=== PATIENT | female | born 1965 | race Two or more races ===

== ENCOUNTER 2019-06-15 19:33 | Inpatient (IN) | payer MEDICAID ==
[~2019-06-15] VITALS: Ht 170.2 cm; Wt 75.5 kg
[2019-06-15] MEDS ORDERED: ONDANSETRON HCL/PF 4 MG/2 ML VIAL IVP ONE (20:00)
[2019-06-15] MEDS ORDERED: IV NS 0.9% 1,000 ML BAG IV ONE (20:00)
--- NOTE | 2019-06-15 20:05 | NUR ---
Pt TORRIE FROM A PENITENTIARY HOUSE FOR POSSIBLE DRUG OVERDOSE ON ANTIDEPRESSANTS PER EMS REPORT. Pt IS AMS. ONLY RESPONSIVE TO STERNAL RUB WITH GARBLED-SLURRED SPEECH, ABLE TO MOVE UPPER EXTREMITIES. IV ACCESS MANAGER NON PROFIT ON RAC #18G. PATENT AND INTACT, FLUSHING WELL. Pt PLACED ON MONITOR. Pt ALREADY SEEN BY . Pt PLACED ON O2 3L VIA NC. VS STABLE. WILL CONTINUE TO MONITOR Pt.
[2019-06-15] MEDS ORDERED: ONDANSETRON HCL/PF 4 MG/2 ML VIAL ONE (20:15)
[2019-06-15 20:20] LABS: ABG BASE EXCESS -2.7 mmol/L; ABG OXYGEN SATURATION 92.3 % (92.0-98.5); ABG PH 7.386 (7.350-7.450); ABG PO2 68.1 mmHg (75.0-100.0); AaDO2 116.8 mmHg; COHb 1.7 % (0.5-1.5); MetHb 0.5 % (0.0-1.5); O2Hb 90.3 % (94.0-97.0)
--- NOTE | 2019-06-15 20:26 | NUR ---
Pt BEING TAKEN FOR HEAD CT
[2019-06-15 20:32] LABS: HEMATOCRIT 47 % (33-45); HEMOGLOBIN 15.9 g/dL (11.5-14.8); MEAN CORPUSCULAR HGB CONC 34 g/dl (31.0-36.0); MEAN CORPUSCULAR VOLUME 95 fL (82-100); PLATELET COUNT (AUTO) 229 /CMM (150-450); RED BLOOD CELL COUNT(AUTO) 4.98 MIL/uL (4.0-5.2)
[2019-06-15 20:44] LABS: CALCIUM, SERUM 9.6 mg/dL (8.5-10.1); CARBON DIOXIDE 25 mmol/L (21-32); CHLORIDE 103 mmol/L (98-107); CREATININE 1.1 mg/dL (0.6-1.3); GLUCOSE 143 mg/dL (74-106); POTASSIUM 3.9 mmol/L (3.5-5.1); SODIUM SERUM 141 mmol/L (136-145); UREA NITROGEN, BLOOD 13 mg/dL (7-18)
[2019-06-15 20:50] LABS: ALANINE AMINOTRANSFERASE 19 U/L (12-78); ALBUMIN 3.7 g/dL (3.4-5.0); ALKALINE PHOSPHATASE 87 U/L (46-116); ASPARTATE AMINOTRANSFERASE 17 U/L (15-37); BILIRUBIN,DIRECT 0.1 mg/dL (0.0-0.2); BILIRUBIN,TOTAL 0.5 mg/dL (0.2-1.0); SALICYLATE 4.4 mg/dL (2.8-20.0); TOTAL PROTEIN, SERUM 7.5 g/dL (6.4-8.2)
[2019-06-15 20:59] LABS: ACETAMINOPHEN < 2 ug/ml (10-30)
[2019-06-15 21:07] LABS: BAND % (MANUAL) 2 % (0.0-5.0); LYMPHOCYTES % (MANUAL) 8 % (16-48); MONOCYTES % (MANUAL) 4 % (0-11.0); NEUTROPHILS % (MANUAL) 86 (42-76)
[2019-06-15] MEDS ORDERED: IV NS 0.9% 1,000 ML IV PRN (21:14)
[2019-06-15] MEDS ORDERED: MORPHINE SULFATE INJ 2 MG/ML DISP.SYRIN IV PRN (21:30)
[2019-06-15] MEDS ORDERED: ACETAMINOPHEN 650 MG/SUPP.RECT RC PRN (21:30)
[2019-06-15] MEDS ORDERED: ONDANSETRON HCL/PF 4 MG/2 ML VIAL IVP PRN (21:30)
[2019-06-15] MEDS ORDERED: LORAZEPAM INJ 2 MG/ML VIAL IV PRN (21:30)
--- NOTE | 2019-06-15 21:46 | NUR ---
CALLED HOUSE SUP FOR ICU BED
--- NOTE | 2019-06-15 21:55 | NUR ---
ICU BED 262 GIVEN
[2019-06-15] MEDS ORDERED: FAMOTIDINE/PF INJ 20 MG/2 ML VIAL IV ONE ×2 (22:00→23:00)
--- NOTE | 2019-06-15 22:43 | NUR ---
RN REQUESTING PT BE SENT UPSTAIRS IN 10 MINS.
--- NOTE | 2019-06-15 22:43 | NUR ---
REPORT GIVEN TO MOBILE PET GROOMERCARRIE GEORGE.
--- NOTE | 2019-06-15 23:30 | NUR ---
ARCHITECTURAL INTERNFORESTRY INSTRUCTOR NOTES RECEIVED PATIENT FROM ER VIA [facility]. DIAGNOSIS: "OVERDOSE, POISONING BY UNSPECIFIED DRUGS, ACUTE ENCEPHALOPATHY: TOXIC." WHILE TRANSFERRING PATIENT FROM [facility] TO BED, PATIENT WOKE UP, AGITATED, SWINGING ARMS, MUMBLING. VERBAL REORIENTATION EFFORTS INEFFECTIVE. TERESA ZENG MADE AWARE, WITH ORDER FOR 1:1 SITTER. JINGLE WRITER ROBERTO MADE AWARE. NO SITTER AVAILABLE AT THIS TIME. SINCE NO SITTER AVAILABLE, TERESA WITH ORDER FOR BILATERAL SOFT WRIST RESTRAINTS TO MAINTAIN PATIENT SAFETY. PLACED ON BEDSIDE TELE MONITOR, V PACING, HR 88 BPM AT THIS TIME. RIGHT AC IV PATENT AND INTACT, WILL OBTAIN ADDITIONAL IV ACCESS PER ICU PROTOCOL. BASSETT CATHETER DRAINING YELLOW URINE WITH SEDIMENTS VIA GRAVITY. CALL LIGHT WITHIN EASY REACH, BILATERAL SOFT WRIST RESTRAINTS IN PLACE. WILL MONITOR THE PATIENT CLOSELY
--- NOTE | 2019-06-15 23:32 | NUR ---
Pt TRANSFERRED PER ACLS PROTOCOL.
[2019-06-15 23:34] LABS: APPEARANCE,URINE CLEAR (CLEAR); BILIRUBIN,URINE NEGATIVE (NEGATIVE); COLOR,URINE YELLOW (YELLOW); KETONES,URINE NEGATIVE (NEGATIVE); LEUKOCYTE ESTERASE ,URINE NEGATIVE (NEGATIVE); NITRITE, URINE NEGATIVE (NEGATIVE); PH,URINE 5.5 (5.0-8.0); PROTEIN,URINE TRACE mg/dl (NEGATIVE); UGLUCOSE NEGATIVE (NEGATIVE); UROBILINOGEN,URINE 0.2 EU/dL (0.2)
[2019-06-15 23:41] VITALS: BP 159/95
[2019-06-15 23:42] LABS: BLOOD, URINE TRACE Ery/uL (NEGATIVE)
[2019-06-15 23:43] LABS: BACTERIA,URINE None seen /HPF (None Seen); RBC,URINE 0-2 /HPF (0-2); SQUAMOUS EPITHELIAL CELL,UR Few /HPF (None Seen); WBC,URINE 0-2 /HPF (0-3)
[2019-06-15 23:48] VITALS: BP 159/95
[2019-06-16] VITALS (25 sets, daily range): BP systolic 101–133; BP diastolic 58–85
--- NOTE | 2019-06-16 | NUR ---
CRIMINAL LEGAL ASSISTANT NOTES SPOKE TO TERESA ZENG NP TO CLARIFY MED ORDERS. PEPCID 20MG IV DAILY, LOVENOX 40MG DAILY. TERESA ALSO WITH ORDER FOR CONTINUOS IV FLUIDS OF NS @ 75 ML/HR. ALL ORDERS READ BACK FOR CLARIFICATION. WILL MONITOR CLOSELY
[2019-06-16] MEDS ORDERED: IV NS 0.9% 1,000 ML IV PRN (00:30)
--- NOTE | 2019-06-16 01:50 | NUR ---
STERILIZATION TECHNICIAN NOTES TERESA ZENG MENTAL HEALTH CASE MANAGER MADE AWARE THAT PATIENT IS STARTING TO HAVE PERIODS OF INCREASING AGITATION, DESPITE THE ADMINISTRATION OF ATIVAN @ 2354. TERESA WITH NEW ORDER FOR ZYPREXA 5MG IM X1 FOR SEVERE AGITATION.
[2019-06-16] MEDS ORDERED: CLON1TAB PO (01:53)
[2019-06-16] MEDS ORDERED: QUET25TA PO (01:53)
[2019-06-16] MEDS ORDERED: CITA40TA22 PO (01:53)
[2019-06-16] MEDS ORDERED: OLANZAPINE 10 MG VIAL IM ONE (02:00)
--- NOTE | 2019-06-16 02:00 | NUR ---
ENTERPRISE RESOURCE PLANNER NOTES CALLED PHARMACY TO VERIFY ZYPREXA ORDER.
--- NOTE | 2019-06-16 02:30 | NUR ---
STRAP BUCKLER MACHINE NOTES PHARMACY CALLED AGAIN BY CHARGE NURSE CLAUDIA TO VERIFY ZYPREXA. PATIENT QUIET AT THIS TIME, WILL MONITOR CLOSELY.
--- NOTE | 2019-06-16 02:53 | NUR ---
PATIENT'S : RBOB Ballesteros LIAM [phone]
[2019-06-16 04:55] LABS: BASOPHILS % (AUTO) 0.4 % (0.0-2.0); HEMATOCRIT 40 % (33-45); HEMOGLOBIN 13.7 g/dL (11.5-14.8); LYMPHOCYTES # (AUTO) 1.3 /CMM (0.8-4.8); LYMPHOCYTES % (AUTO) 11.2 % (20.0-44.0); MEAN CORPUSCULAR HGB CONC 34 g/dl (31.0-36.0); MEAN CORPUSCULAR VOLUME 95 fL (82-100); MONOCYTES # (AUTO) 0.7 /CMM (0.1-1.30); MONOCYTES % (AUTO) 6.1 % (2.0-12.0); NEUTROPHILS # (AUTO) 9.9 /CMM (1.8-8.9); NEUTROPHILS % (AUTO) 82.3 % (43.0-81.0); PLATELET COUNT (AUTO) 190 /CMM (150-450); RED BLOOD CELL COUNT(AUTO) 4.23 MIL/uL (4.0-5.2)
[2019-06-16 05:03] LABS: CALCIUM, SERUM 8.8 mg/dL (8.5-10.1); CREATININE 1.1 mg/dL (0.6-1.3); MAGNESIUM 1.7 mg/dL (1.8-2.4); PHOSPHORUS 4.4 mg/dL (2.5-4.9)
[2019-06-16 05:19] LABS: THYROID STIMULATING HORMONE 0.728 uIU/mL (0.358-3.74)
--- NOTE | 2019-06-16 06:40 | NUR ---
WELCOME CENTER ATTENDANT NOTES PATIENT RESTING IN BED, APPEARS COMFORTABLE. ZYPREXA IM ON STANDBY, NOT NEEDED PATIENT IS NOW CALM. PATIENT REMAINS LETHARGIC/ALTERED, BUT IS NO LONGER COMBATIVE AND RESTLESS AT THIS TIME. PATIENT'S ESCORTED TO TO WAITING ROOM. PATIENT'S ROBB HAS THE PATIENT'S PHONE. WILL ENDORSE THE PATIENT TO THE AM SHIFT NURSE FOR CONTINUITY OF CARE
[2019-06-16] MEDS ORDERED: FUROSEMIDE 40 MG/4 ML VIAL IV SCH (07:30)
--- NOTE | 2019-06-16 07:30 | NUR ---
IRONWORKER APPRENTICE SHOP INITIAL NOTE RECEIVED PATIENT AWAKE, DROWSY, RESTLESS, MAKING INCOMPREHENSIBLE SOUNDS. VPAING ON MONITOR. F/C PATENT INTACT, DRAINING BY GRAVITY. HOB ELEVATED. REORIENTED, NON-COMPLIANT. NO S/S OF PAIN OR DISCOMFORT. SKIN WARM AND DRY TO TOUCH. BILATERAL SOFT RESTRAINTS IN PLACE. CIRCULATION CHECKED. MONITORED CLOSELY. SIDE RAILS UP AND LOCKED. BED ALARM ON. BED AT LOWEST POSITION. WILL CONTINUE TO MONITOR.
[2019-06-16 07:58] LABS: THYROID STIMULATING HORMONE 0.691 uIU/mL (0.358-3.74)
[2019-06-16] MEDS: FAMOTIDINE/PF INJ 20 MG/2 ML VIAL IV SCH (08:24)
[2019-06-16] MEDS: ENOXAPARIN SODIUM 40 MG/0.4 ML DISP.SYRIN SQ SCH (08:27)
[2019-06-16] MEDS ORDERED: ENOXAPARIN SODIUM 40 MG/0.4 ML DISP.SYRIN SQ ONE (09:00)
[2019-06-16] MEDS: Magnesium 1GM/D5W 100ML PREMIX 100 ML IV SCH ×2 (11:01→12:51)
--- NOTE | 2019-06-16 11:22 | NUR ---
GOLF COURSE STARTER NOTE SEEN AND EXAMINED DR. ROCA, PATIENT BECAME AGITATED AND STARTED YELLING, BUT CALMED DOWN AND ANSWERED QUESTIONS. OK TO TRANSFER TO TELE WITH SITTER. CHARGE NURSE AWARE. WILL INFORM GANG PLANK WORKMAN.
--- NOTE | 2019-06-16 11:35 | NUR ---
LEATHER CRAFTSMAN NOTE PATIENT MORE AWAKE AND ALERT, FOLLOWS SIMPLE COMMANDS. SPEECH THERAPIST AT BEDSIDE, SWALLOW EVAL. WILL CONTINUE TO MONITOR.
--- NOTE | 2019-06-16 11:48 | NUR ---
ROLL SCALE MAN NOTE SEEN BY SPEECH THERAPIST, PER THERAPIST, PATIENT ABLE TO SWALLOW FINE, BUT FEELS MORE SAFE TO PLACE HER ON SOFT DIET, AND RECOMMENDS ORE CHARGER TO SPEAK WITH PATIENT. ORE CHARGER INFORMED.
--- NOTE | 2019-06-16 12:00 | NUR ---
STAFF RADIOGRAPHER NOTE PATIENT PULLING OFF RESTRAINTS, NOTED WITH BILATERAL WRIST BRUISES. PICTURE TAKEN AND PLACE IN CHART. RESTRAINTS RELEASED AT THIS TIME AND CLOSELY MONITORED PATIENT.
--- NOTE | 2019-06-16 13:55 | NUR ---
JAMAL received a call from Pt's counter caser Nelson Contreras from [facility] informing SW that due to pt. intentionally overdosing they will not be able to accommodate pt. back and is requesting assistance with placement. Pt. is in the [facility] program and has been there for the past two years. Pt. is also receiving [facility] services through [facility]. Pt's therapist at [place] is Suma Levine . JAMAL informed Nelson that pt. will be evaluated by psychiatrist. SW to follow up with Nelson after pt. has been evaluated by psychiatrist.
--- NOTE | 2019-06-16 14:00 | NUR ---
SENIOR INTEGRATION DEVELOPER NOTE PATIENT REQUIRING FREQUENT CHECKS, REMINDERS, REORIENTATION. NON-COMPLIANT WITH CARE DESPITE REMINDERS AND REORIENTATION. AT BEDSIDE, PATIENT ALSO DOES NOT LISTEN TO . WILL CONTINUE TO CLOSELY MONITOR.
--- NOTE | 2019-06-16 14:40 | NUR ---
ORAL AND MAXILLOFACIAL SURGEON NOTE SEEN BY WELDER PLASMA ARC, PLACED PATIENT ON 2GM SODIUM SOFT DIET
--- NOTE | 2019-06-16 17:00 | NUR ---
OWNER/OPERATOR NOTE PATIENT ATTEMPTED TO EAT DINNER, BUT ONLY AT 25% OF IT. STILL WITH ATTEMPTS TO GET OUT OF BED, REMOVING LINES. WILL CONTINUE TO MONITOR.
--- NOTE | 2019-06-16 17:38 | NUR ---
SUPERVISOR REFRACTORY PRODUCTS NOTE REPORT GIVEN TO NICHELLE NURSE
--- NOTE | 2019-06-16 18:15 | NUR ---
BILLING COLLECTIONS SPECIALIST NOTE PATIENT TRANSFERRED VIA WHEELCHAIR TO NICHELLE ROOM 119-2 WITH ROBB AT BEDSIDE, ALL BELONGINGS WITH PATIENT. STABLE CONDITION.
--- NOTE | 2019-06-16 18:15 | NUR ---
RESERVE OFFICERMID LEVEL BUSINESS ANALYST NOTE RECEIVED PATIENT FROM ICU. REPORT FROM DELFINO RN. PATIENT IN NO ACUTE DISTRESS. NO SOB NOTED. ON REPORT DELFINO STATED PATIENT ON RESTRAINTS AND RESTRAINTS REMOVED DUE TO BRUISING ON BILATERAL WRISTS IN ICU. DELFINO RN TOOK PICS AND IN CHART. I RECEIVED PATIENT WITHOUT RESTRAINTS AND MAINTAINED ON A 1:1 SITTER. PATIENT HAS NO SLURRED SPEECH BUT ALERT AND ORIENTED X2. PATIENT AT THE BEDSIDE. PATIENT ON CARDIAC MONITORING V PACING HR 89. IV INTACT. SAFETY PRECAUTIONS IN PLACE. WILL CONTINUE TO MONITOR. BASSETT CATHETER HANGING TO GRAVITY. PATIENT BED IS LOCKED AND IN LOWEST POSITION. CALL LIGHT WITHIN REACH. WILL CONTINUE TO MONITOR.
--- NOTE | 2019-06-16 19:24 | NUR ---
POLY OPERATOR CLOSING NOTE PATIENT RESTING IN BED COMFORTABLY, WITH AT THE BEDSIDE. PATIENT BREATHING ON NC 3L SATURATING >95% SPO2. PATIENT BREATHING IS EVEN AND UNLABORED. PATIENT IN NO ACUTE DISTRESS. NO SOB NOTED. PATIENT VITAL SIGNS WNL. PATIENT BASSETT CATHETER HANGING TO GRAVITY. PATIENT MAINTAINED ON A 1:1 SITTER. PATIENT MAINTAINED ON CARDIAC MONITORING, V PACING 87. SAFETY PRECAUTIONS IN PLACE. PATIENT BED IS LOCKED AND IN LOWEST POSITION. CALL LIGHT WITHIN REACH. NURSING NEEDS MET. PATIENT KEPT CLEAN AND DRY. ENDORSED CARE TO PM SHIFT FOR CARMINE.
--- NOTE | 2019-06-16 20:00 | NUR ---
NICHELLE RN NOTE PATIENT RESTING IN BED COMFORTABLY, WITH AT THE BEDSIDE , A/A/OX2. PATIENT BREATHING ON NC 3L SATURATING >95% SPO2. PATIENT BREATHING IS EVEN AND UNLABORED. PATIENT IN NO ACUTE DISTRESS. NO SOB NOTED. PATIENT VITAL SIGNS WNL. PATIENT BASSETT CATHETER DRAINING TO GRAVITY. PATIENT MAINTAINED ON A 1:1 SITTER. PATIENT MAINTAINED ON CARDIAC MONITORING, V PACING 88. SAFETY PRECAUTIONS IN PLACE. PATIENT BED IS LOCKED AND IN LOWEST POSITION. CALL LIGHT WITHIN REACH. PATIENT'S NEEDS MET AT THIS TIME . WILL CONTINUE TO MONITOR.
[2019-06-17] VITALS: BP 112/70
--- NOTE | 2019-06-17 02:00 | NUR ---
RN NOTES PATIENT WAS OFFERED TO BE GIVEN BED BATH IN THE PRESENCE OH HER GIRLFRIEND AND GENARO Hickey. PATIENT IS REFUSING TO BE CLEANED AND TOUCHED. ALL RISKS AND BENEFITS HAS BEEN EXPLAINED TO THE PATIENT. WILL CONTINUE TO MONITOR PATIENT CLOSELY.
[2019-06-17 04:00] VITALS: BP 110/66
[2019-06-17 06:24] LABS: ALANINE AMINOTRANSFERASE 18 U/L (12-78); ALKALINE PHOSPHATASE 85 U/L (46-116); ASPARTATE AMINOTRANSFERASE 14 U/L (15-37); BILIRUBIN,TOTAL 0.7 mg/dL (0.2-1.0); CALCIUM, SERUM 8.8 mg/dL (8.5-10.1); CARBON DIOXIDE 30 mmol/L (21-32); CHLORIDE 101 mmol/L (98-107); CREATININE 0.9 mg/dL (0.6-1.3); GLUCOSE 99 mg/dL (74-106); MAGNESIUM 1.9 mg/dL (1.8-2.4); PHOSPHORUS 3.2 mg/dL (2.5-4.9); POTASSIUM 3.3 mmol/L (3.5-5.1); SODIUM SERUM 137 mmol/L (136-145); TOTAL PROTEIN, SERUM 6.3 g/dL (6.4-8.2); UREA NITROGEN, BLOOD 14 mg/dL (7-18)
[2019-06-17 06:38] LABS: BASOPHILS % (AUTO) 0.4 % (0.0-2.0); EOSINOPHILS % (AUTO) 0.6 % (0.0-6.0); HEMATOCRIT 41 % (33-45); LYMPHOCYTES # (AUTO) 1.7 /CMM (0.8-4.8); LYMPHOCYTES % (AUTO) 20.6 % (20.0-44.0); MEAN CORPUSCULAR HGB CONC 34 g/dl (31.0-36.0); MEAN CORPUSCULAR VOLUME 94 fL (82-100); MONOCYTES # (AUTO) 0.5 /CMM (0.1-1.30); MONOCYTES % (AUTO) 6.5 % (2.0-12.0); NEUTROPHILS # (AUTO) 5.8 /CMM (1.8-8.9); NEUTROPHILS % (AUTO) 71.9 % (43.0-81.0); PLATELET COUNT (AUTO) 171 /CMM (150-450); RED BLOOD CELL COUNT(AUTO) 4.34 MIL/uL (4.0-5.2); WHITE BLOOD COUNT (AUTO) 8.1 K/uL (4.3-11.0)
--- NOTE | 2019-06-17 07:30 | NUR ---
RN AM NOTE PATIENT IN BED, CONFUSED AND YELING TO NURSE AND INTELLIGENCE INTERN ABOUT MAKING PHONE CALLS. STATES SHE SHOULDNT BE IN THE HOSPITAL AND THAT HER IS HERE AND NOT HERE. RN ATTMEPT TO CALL NUMBER VERBALIZED BY JOVI AND IT IS DISCONECTED. PATIENT DOENST UNDERSTAND WHY SHE IS HERE, ANGRY AND DEMANDING. IV PATENT AND INTACT, VITALS WNL. BED LOW TO FLOOR SITTER AT BEDSIDE, CALL LIGHT WITHIN REACH. SAFETY MEASURES IN PLACE.
[2019-06-17 08:00] VITALS: BP 104/56
[2019-06-17] MEDS: FAMOTIDINE/PF INJ 20 MG/2 ML VIAL IV SCH (08:37)
--- NOTE | 2019-06-17 09:00 | NUR ---
RN NOTE PATIENT CONFUSED, ANGRY AND DEMANDING. NO NUMBER IN CHART FOR RN TO CONTACT . SAFETY MEASURES IN PLACE. CONTINUE TO MONTIOR.
[2019-06-17] MEDS: ENOXAPARIN SODIUM 40 MG/0.4 ML DISP.SYRIN SQ SCH (09:19)
--- NOTE | 2019-06-17 09:50 | NUR ---
JAMAL spoke with pt's CARRIE May regarding pt. needing a psych. consult. CARRIE May informed SW she is sending an psych. consult order for the pt. CARRIE May also informed JAMAL that pt. is very confused. Pt. is pulling out her Yousif and is aggressive at times.
--- NOTE | 2019-06-17 09:59 | NUR ---
RN NOTE RN SPOKE WITH MD NO NEED TO CALL POISON CONTROL AT THIS TIME. PSYCH CONSULT PUT IN FOR PATIENT.
[2019-06-17] MEDS ORDERED: POTASSIUM CHLORIDE 20 MEQ TAB.PRT.SR PO SCH (11:00)
--- NOTE | 2019-06-17 11:53 | NUR ---
RN NOTE PT EVALUATED PATIENT AT BEDSIDE. STANDBY ASSIST AND AMBULATE WITH WALKER. D/C BASSETT CONTINUE STRICT INTAKE AND OUTPUT USE OF HAT INSIDE TOILET. SITTER AT BEDSIDE, PATIENT STILL CONFUSED.
[2019-06-17 12:00] VITALS: BP 108/60
[2019-06-17] MEDS ORDERED: POTASSIUM CHLORIDE 20 MEQ TAB.PRT.SR PO ONE (13:00)
--- NOTE | 2019-06-17 15:15 | NUR ---
RN NOTE TRANSFTER REQUEST FROM FAMILY PATIENT AT BEDSIDE. PATIENT AND REQUEST SHE MAY BE TRANSFERED TO [facility] PHONE # [phone]. RN CONTACTED CASE MANAGMENT TO INFORM OF REQUEST, NO ANSWER MESSAGE WAS LEFT ON VOICEMAIL. RN WILL ENDORSE TO COMPLEX CASE MANAGER. WIFES NUMBER BRANDY WHEELER [phone]
[2019-06-17] MEDS: ALBUTEROL HALF STRENGTH 1.25 MG/3 ML VIAL.NEB NEB SCH ×2 (15:30→19:52)
[2019-06-17] MEDS: IPRATROPIUM NEB FS 0.5 MG/2.5 ML AMPUL.NEB NEB SCH ×2 (15:30→19:52)
[2019-06-17 16:00] VITALS: BP 103/59
--- NOTE | 2019-06-17 17:53 | NUR ---
RN NOTE SAFETY PATIENT AT BEDSIDE. BROUGHT PATIENTS PURSE. SITTER AT BEDSIDE. INFORMED RN PATIENT IS UPSET BECAUSE TOOK OUT ALL OF HER PILLS FROM HER PURSE. PATIENT IS ON A SITTER AND HOLD AWAITING PSYCH CONSULT DUE TO TOXICOLOGY REPORTS AND ICU ADMISSION. REINFORCE SAFETY MEASURES RN CALLED CASE MANAGMENT. AWAITING RESPONSE WILL ENDORSE TO NIGHT NRUSE.
--- NOTE | 2019-06-17 18:46 | NUR ---
RN CLOSING NOTE PATIENT ALERT AND ORIENTED X2-3. AT BEDSIDE. PATIENT HAS SITTER AT BEDSIDE. PATIENT HAS NOT SEEN PSYCH CONSULT TODAY, RN PUT ORDER IN, MD AWARE. IV PATENT AND INTACT, BED IN LOW POSITION. ALL NEEDS MET AT THIS TIME. WILL ENDORSE TO [facility] NURSE.
[2019-06-17 20:00] VITALS: BP 109/58
[2019-06-18] VITALS: BP 107/65
[2019-06-18] MEDS: IPRATROPIUM NEB FS 0.5 MG/2.5 ML AMPUL.NEB NEB SCH ×3 (01:01→13:58)
[2019-06-18] MEDS: ALBUTEROL HALF STRENGTH 1.25 MG/3 ML VIAL.NEB NEB SCH ×3 (01:01→13:58)
[2019-06-18 04:00] VITALS: BP 109/52
[2019-06-18 07:32] LABS: CALCIUM, SERUM 8.9 mg/dL (8.5-10.1); CREATININE 0.9 mg/dL (0.6-1.3); POTASSIUM 3.5 mmol/L (3.5-5.1)
[2019-06-18 07:40] LABS: BASOPHILS % (AUTO) 0.6 % (0.0-2.0); EOSINOPHILS % (AUTO) 1.3 % (0.0-6.0); HEMATOCRIT 40 % (33-45); HEMOGLOBIN 13.5 g/dL (11.5-14.8); LYMPHOCYTES # (AUTO) 2.2 /CMM (0.8-4.8); LYMPHOCYTES % (AUTO) 35.8 % (20.0-44.0); MEAN CORPUSCULAR HGB CONC 34 g/dl (31.0-36.0); MEAN CORPUSCULAR VOLUME 94 fL (82-100); MONOCYTES # (AUTO) 0.5 /CMM (0.1-1.30); NEUTROPHILS # (AUTO) 3.4 /CMM (1.8-8.9); NEUTROPHILS % (AUTO) 54.3 % (43.0-81.0); PLATELET COUNT (AUTO) 184 /CMM (150-450); WHITE BLOOD COUNT (AUTO) 6.3 K/uL (4.3-11.0)
[2019-06-18 08:00] VITALS: BP 129/55
[2019-06-18] MEDS: ENOXAPARIN SODIUM 40 MG/0.4 ML DISP.SYRIN SQ SCH (09:25)
--- NOTE | 2019-06-18 14:30 | NUR ---
RN NOTE PT DISCHARGED TO [facility], AT [address] [place] [address], WITH ACCOMPANYING HER, IN STABLE CONDITION, WALKER PROVIDED UPON HER REQUEST, TAXI VOUCHER HANDED TO PT. EXIT CARE DONE, BELONGINGS AND HOME MEDS GIVEN TO PT, PAPERS SIGNED, DISCHARGE INSTRUCTIONS AND TEACHING PROVIDED TO PT, PT VERBALIZED UNDERSTANDING, ID BAND REMOVED, IV SITE REMOVED AND TAPED.
== END 2019-06-18 14:30 | disposition home or self-care (01) | DRG 812 ==
LOC: ER 19:33 → ICU 22:22 → TELE1 06-16 18:02 → MEDSG1 06-18 09:45
PROVIDERS: ADMIT Nurse Practitioner Acute Care; ATTEND Family Medicine
DX: T43.201A Poisoning by unspecified antidepressants, accidental (unintentional), initial encounter (principal); G92 Toxic encephalopathy; E11.65 Type 2 diabetes mellitus with hyperglycemia; I50.32 Chronic diastolic (congestive) heart failure; F29 Unspecified psychosis not due to a substance or known physiological condition; Y92.89 Other specified places as the place of occurrence of the external cause; D72.829 Elevated white blood cell count, unspecified; J98.11 Atelectasis; Z95.0 Presence of cardiac pacemaker; R94.31 Abnormal electrocardiogram [ECG] [EKG]; Z68.29 Body mass index [BMI] 29.0-29.9, adult; E66.9 Obesity, unspecified; E87.6 Hypokalemia
CPT/HCPCS: 36415; 36600; 70450-TC; 71045-TC; 80048-TC; 80053-TC; 80061-TC; 80076-TC; 80305; 81000-TC; 83735-TC; 84100-TC; 84439-TC; 84443-TC; 84484-TC; 85025-TC; 85730-TC; 87081-TC; 87086-TC; 92526; 92611-TC; 93307-TC; 94799-TC; 97116-TC; 97530-TC; G0378; G0480; J1650; J1940; J2060; J2405; J3475; J3490; J7030

== ENCOUNTER 2020-10-11 10:00 | Emergency (ER) | payer OTHER ==
[~2020-10-11] VITALS: Ht 157.5 cm; Wt 83.0 kg
[~2020-10-11 10:00] MED LIST: CITA40TA22 PO; CLON1TAB PO; QUET25TA PO
[2020-10-11 10:13] VITALS: BP 123/78
--- NOTE | 2020-10-11 10:15 | NUR ---
DR. PETERSON AT BEDSIDE FOR EVAL.
--- NOTE | 2020-10-11 10:32 | NUR ---
PATIENT A/OX4, AMBULATORY WITH STEADY GAIT. BREATHING EVEN AND UNLABORED, NO SOB NOTED, NEEDS ATTENDED. Patient discharged to home in stable condition. Written and verbal after care instructions given. Patient verbalizes understanding of instruction.
--- NOTE | 2020-10-11 10:38 | NUR ---
Patient given written and verbal discharge instructions. Patient verbalizes understanding of instructions. Patient is ambulatory with steady gait. Refuses offer of long-term placement. Patient given list of available shelters in surrounding area.
== END 2020-10-11 10:38 | disposition home or self-care (01) ==
LOC: ER 10:01
DX: R05 Cough (principal); E78.5 Hyperlipidemia, unspecified; R45.1 Restlessness and agitation; Z95.0 Presence of cardiac pacemaker; Z59.0 Homelessness; Z88.0 Allergy status to penicillin; Z79.899 Other long term (current) drug therapy